=== PATIENT | female | born 1980 | race Caucasian/White ===

== ENCOUNTER → 2016-10-14 | Outpatient (CLI) | payer BC ==
--- NOTE | 2016-10-14 12:11 | US ---
October 14, [address] Giancarlo Zavala, Thank you for requesting consultation and a detailed obstetrical ultrasound for Mrs. Connie wells t o advanced maternal age. As you know, Inés is a 36 year old G 3, P 1011 . Her due date is 7 by ultrasound dating. Her current gestational age based on this dating is 21 weeks 0 days. Her [facility] screening revealed a reassuring NIPT (by her report, I don't have the records) and a normal MSA FP. Her obstetrical history reveals a miscarriage and a term vaginal delivery. ULTRASOUND Number of fetuses: 1 Placental location: Anterior; no evidence of previa Placental cord insertion: Intraplacental presentation: Cephalic Cervix: 4.4 cm viewed transabdominally Maximum Vertical Pocket: 6.5 cm The adnexa were evaluated. No pathology was seen. Right ovary is visualized and appears normal. It measures 3.1 x 1.9 x 3.2 cm. There is a probable cor pus luteum of this ovary. Left ovary is visualized with a small simple cyst. The ovary measures 4.4 x 2.8 x 4.2 cm. The cyst me asures 3.6 x 2.4 x 3.2 cm. MEASUREMENTS: Biparietal diameter: 53 mm 22 weeks, 1 days Head circumference: 191 mm 21 weeks, 3 days Abdominal circumference: 170 mm 22 weeks, 1 days Femur length: 34 mm 20 weeks, 4 days Humerus length: 35 mm 21 weeks, 6 days Transcerebellar diameter: 23 mm 21 weeks, 1 days Average ultrasound age: 21 weeks, 4 days Estimated weight: 427 gm weight percentile: 69% ANATOMY Supratentorial brain: Normal including views of the falx, cavum septum pellucidum and choroids Lateral Ventricle: Normal, measuring 4.3 mm Posterior fossa: Normal including the cerebellum and cisterna magna Spine: Normal Nuchal fold: 4.8 mm normal Face: Normal views of the lip and nose area Profile: Normal Palate: Normal appearance of the alveolar ridge Cardiac Exam: Four chamber view of the heart: Normal including intraventricular septum Left Ventricular Outflow Tract: Normal Right Ventricular Outflow Tract: Normal 3 Vessel View: Normal Tracheal View: Normal Aortic Arch: Normal Ductal Arch: Normal SVC/IVC: Normal Heart Rate: 136 bpm Diaphragm: No overt abnormalities have been detected Stomach: Normal Umbilical cord insertion: Normal Right kidney: Normal Left kidney: Normal Bladder: Normal Number of cord vessels: Three Upper extremities: Normal including the number, and architecture Lower extremities: Normal including the number and architecture Gender: Undisclosed; "Normal" IMPRESSION: 1. Intrauterine at 21 w 0 d, EMANI of 02/24/17. This is consistent with her previously esta blished dates. 2. Today's sonogram reveals a normal appearing fetus. 3. Cervical length measures 4.4 cm, and is without evidence of insufficiency. 4. Advanced maternal age; reassuring NIPT RECOMMENDATIONS: I was pleased to review today's ultrasound with your patient. I have reassured her that the gr owth and amniotic fluid volume are appropriate for this gestational age. The detailed anatomic surve y did not reveal any overt abnormalities. Inés is aware that ultrasound is a screening tool and cannot provide definitive genetic diagnosis. Should she desire definitive genetic diagnosis, tomas blanchard would need to have a genetic amniocentesis performed. After our discussion regarding the procedure , benefits, risks, alternatives, and limitations to the information received Inés DECLINES amniocen tesis. Future ultrasound and consultation is left to your clinical discretion. Thank you for allowing me the opportunity to consult and evaluate your patient. Should you have any questions or concerns please do not hesitate to contact me. This visit was approximately 15 minutes in length with 10 minutes spent in direct face to face consultation reviewing aneuploidy screening ve rsus definitive genetic diagnosis. Sincerely, Apurva Hudson MD [facility] Department of Obstetrics & Gynecology [facility]
--- NOTE | 2016-10-14 16:32 | US ---
OB sonogram History: EMANI 02/24/2017, 21 weeks 0 days, check growth and anatomy, maternal history of miscarriage, a dvanced maternal age Comparison: None Findings: There is a single viable intrauterine gestation in vertex presentation. The placenta is ant erior without previa. The cervix is closed measuring 4.4 cm transabdominally. The umbilical cord inse rts normally into the placenta. Maximum amniotic fluid pocket = 6.5 cm. Both maternal ovaries are vis ualized and are normal. There is a cyst 3.6 cm simple cyst in the maternal left ovary. The visualized face, intracranial contents and spine look normal. The heart i s 4 chambered and has normal right and left ventricular outflow tracks and an intact interventricular septum. heart rate = 136 bpm. Fluid is identified in the stomach and urinary bladd er. The renal region looks normal. The umbilical cord has 3 vessels and a normal insertion site . 4 extremities are present. BPD = 53 mm = 22 weeks 1 day Head circumference = 191 mm = 21 weeks 3 days Abdominal circumference = 170 mm = 22 weeks 1 day Femur length = 34 mm = 20 weeks 4 days Humeral length = 35 mm = 21 weeks 6 days Cerebellar width = 23 mm = 21 weeks 1 day Cisterna magna = 4 mm Estimated weight = 4 21 g = 67 percentile Average gestational age by ultrasound = 21 weeks 4 days Ultrasound EMANI February 20, 2017 Impression: Size consistent with dates. Normal anatomy. This report should be read in conjuncti on with a consultation by Dr. Apurva Hudson.
== END ==
LOC: FIMAGING 10:37
PROVIDERS: ATTEND Obstetrics & Gynecology
DX: O09.522 Supervision of elderly multigravida, second trimester (principal); Z3A.21 21 weeks gestation of pregnancy

== ENCOUNTER → 2016-12-16 | Outpatient (CLI) | payer BC | LOC: FIMAGING 12:34 | PROVIDERS: ATTEND Obstetrics & Gynecology | DX: O14.93 Unspecified pre-eclampsia, third trimester (principal); O36.63X0 Maternal care for excessive fetal growth, third trimester, not applicable or unspecified; O09.523 Supervision of elderly multigravida, third trimester; Z3A.30 30 weeks gestation of pregnancy ==

== ENCOUNTER → 2017-01-06 | Outpatient (CLI) | payer BC | LOC: FIMAGING 12:52 | PROVIDERS: ATTEND Obstetrics & Gynecology | DX: O09.523 Supervision of elderly multigravida, third trimester (principal); O14.93 Unspecified pre-eclampsia, third trimester; Z3A.33 33 weeks gestation of pregnancy ==

== ENCOUNTER → 2017-01-27 | Outpatient (CLI) | payer BC | LOC: FIMAGING 08:16 | PROVIDERS: ATTEND Obstetrics & Gynecology | DX: O09.523 Supervision of elderly multigravida, third trimester (principal); O14.93 Unspecified pre-eclampsia, third trimester; Z3A.36 36 weeks gestation of pregnancy ==

== ENCOUNTER 2017-02-04 07:30 | Inpatient (IN) | payer BC ==
[2017-02-04] MEDS ORDERED: OLIVE OIL 118 ML BTL MISC PRN (11:46)
[2017-02-04] MEDS ORDERED: EPSOM SALT 454 GM TP PRN (11:46)
[2017-02-04] MEDS ORDERED: TERBUTALINE SULFATE 1 MG/ML VIAL IV PRN (11:46)
[2017-02-04] MEDS ORDERED: LR 1,000 ML IV PRN (11:46)
[2017-02-04] MEDS ORDERED: OXYTOCIN/RINGERS LACTATE 1,000 ML IV PRN (11:46)
[2017-02-04] MEDS ORDERED: OXYTOCIN/LR *STANDARD DOSE PROTOCOL IV SCH (12:30)
[2017-02-04] MEDS ORDERED: LIDOCAINE 1% 2 ML INJ ONE (12:36)
[2017-02-04] MEDS ORDERED: LIDOCAINE 1% 300 MG/30 ML SDV ONE (12:38)
[2017-02-04] MEDS ORDERED: AMMONIA AROMATIC 1 EACH AMP IH ONE (12:39)
[2017-02-04] MEDS ORDERED: TERBUTALINE SULFATE 1 MG/ML VIAL ONE (12:39)
[2017-02-04] MEDS ORDERED: OLIVE OIL 118 ML BTL ONE (12:39)
[2017-02-04] MEDS ORDERED: OXYTOCIN 10 UNIT/ML VIAL ONE (12:40)
[2017-02-04] MEDS ORDERED: MISOPROSTOL 200 MCG TAB ONE (12:40)
--- NOTE | 2017-02-04 14:29 | OBPROG ---
OBG Progress Note Assessment/Plan: Assessment: 36 yo @ 37 09/14, IOL for mild pre-eclampsia Plan: 02/04/17 14:27 FWB reassuring. GBS neg. Arom clear. Will begin pitocin. Subjective: 36 yo @ 37 09/14, IOL for mild kud-vxdaoqrta-ab headaches, no chest pain, no vision changes. Objective: VSS - SVE Dilation (cm): 2 Effacement (%): Less than 50 Station: -2 Current Contraction Pattern: Irregular FHR (bpm): 150 FHR Pattern Variability: Moderate FHR Category: 2 Membranes: AROM Amniotic Fluid Color: Clear ICD10 Worksheet Patient Problems: Problems Problem Status Onset Mild pre-eclampsia Acute
[2017-02-04 14:32] LABS: ABSOLUTE IMMATURE GRANULOCYTES 0.12 10^3/uL (0.00-0.10); ADD DIFF? NO; ADD MORPH? NO; ADD SCAN? NO; ATYPICAL LYMPHOCYTE FLAG 0 (0-99); FRAGMENT RBC FLAG 10 (0-99); HEMATOCRIT 41.8 % (38.0-47.0); HEMOGLOBIN 13.9 g/dL (12.6-16.3); LEFT SHIFT FLG 10 (0-99); LIPEMIA HEMOLYSIS FLAG 80 (0-99); MEAN CELL HEMOGLOBIN 28.9 pg (27.9-34.1); MEAN CELL HEMOGLOBIN CONCENTR. 33.3 g/dL (32.4-36.7); MEAN CELL VOLUME 86.9 fL (81.5-99.8); MEAN PLATELET VOLUME 13.2 fL (8.7-11.7); PLATELET CLUMPS FLAG 10 (0-99); PLATELET COUNT 150 10^3/uL (150-400); RED BLOOD CELL COUNT 4.81 10^6/uL (4.18-5.33); RED CELL DISTRIBUTION WIDTH 14.4 % (11.5-15.2)
[2017-02-04 14:45] LABS: ALANINE AMINOTRANSFERASE 22 IU/L (9-52); ASPARTATE AMINOTRANSFERASE 25 IU/L (14-46); BILIRUBIN,TOTAL 0.6 mg/dL (0.1-1.4); BILIRUBIN-CONJUGATED 0.4 mg/dL (0.0-0.5); BILIRUBIN-UNCONJUGATED 0.2 mg/dL (0.0-1.1); CREATININE 0.6 mg/dL (0.6-1.0); GLOMERULAR FILTRATION RATE > 60; LACTATE DEHYDROGENASE 481 IU/L (313-618); URIC ACID 6.3 mg/dL (2.5-6.8)
--- NOTE | 2017-02-04 18:48 | OBPROG ---
OBG Progress Note Assessment/Plan: Assessment: 36 yo @ 37 09/14, IOL for mild pre-eclampsia Plan: FWB reassuring. GBS neg. Arom clear. expect soon. Subjective: 36 yo @ 37 09/14, IOL for mild nwo-wjumymhey-ayleq pelvic pressure. Having blood show. Objective: 02/04/17 13:55 02/04/17 13:55 Patient ABO/Rh O POSITIVE 02/04/17 13:55 Uric Acid 6.3 mg/dL (2.5-6.8) 02/04/17 13:55 Total Bilirubin 0.6 mg/dL (0.1-1.4) 02/04/17 13:55 Conjugated Bilirubin 0.4 mg/dL (0.0-0.5) 02/04/17 13:55 Unconjugated Bilirubin 0.2 mg/dL (0.0-1.1) 02/04/17 13:55 AST 25 IU/L (14-46) 02/04/17 13:55 ALT 22 IU/L (9-52) 02/04/17 13:55 Lactate Dehydrogenase 481 IU/L (313-618) 02/04/17 13:55 VSS - SVE Dilation (cm): 5 Effacement (%): 100 Station: -1 Current Contraction Pattern: Regular FHR (bpm): 130 FHR Pattern Variability: Moderate FHR Category: 2 Membranes: AROM Amniotic Fluid Color: Clear ICD10 Worksheet Patient Problems: Problems Problem Status Onset Mild pre-eclampsia Acute
[2017-02-04] MEDS ORDERED: HYDROCORTISONE 0.5% CREAM TP PRN (20:14)
[2017-02-04] MEDS ORDERED: HYDROCODONE/APAP 5/325 TAB PO PRN (20:14)
[2017-02-04] MEDS ORDERED: SIMETHICONE 80 MG TAB CHEW PO PRN (20:14)
--- NOTE | 2017-02-04 20:16 | OBPROC ---
- Labor and Delivery Onset of Contractions Date: 02/04/17 Onset of Contractions Time: 14:00 Onset of Contractions Type: Induced Rupture of Membranes Date: 02/04/17 Rupture of Membranes Time: 14:00 Rupture of Membranes Type: Artificial Amniotic Fluid Color: Clear Dilation Complete Time: 19:00 Delivery Type: Spontaneous Placenta Delivery Date: 02/04/17 Episiotomy/Laceration: 1st Degree Repair: 3-0, Vicryl EBL: 200 ml Complications: None - Medications Labor Augmentation/Induction Meds Used: Pitocin Labor Augmentation/Induction Indication: Medical (mild pre-eclampsia) - Info Infant A Delivery Date: 02/04/17 Delivery Time: 19:08 Sex of : Male Score (1 Min): 8 Score (5 Min): 9
[2017-02-05] MEDS: IBUPROFEN 600 MG TAB PO PRN ×2 (05:25→19:54)
--- NOTE | 2017-02-05 08:45 | SOAPPROG ---
SOAP Progress Note Assessment/Plan: Assessment: 36 yo PPD#1 s/p IOL for preeclampsia without severe features No symptoms, labs WNL Recovering well Rh pos, rub imm Plan: Monitor BPs this AM Consider home tonight at her request if peds agrees Otherwise routine pp care 02/05/17 08:44 Subjective: Mom feels well, no concerns. Bleeding appropriate. BF going well. Denies PIH symptoms. Would like to go home today if possible. Objective: Vital Signs Temp Pulse Resp BP Pulse Ox 36.6 C 86 18 130/81 H 98 02/04/17 23:20 02/04/17 23:20 02/04/17 23:20 02/04/17 23:20 02/04/17 23:20 Laboratory Results 02/04/17 13:55 02/04/17 13:55 02/04/17 02/05/17 02/06/17 05:59 05:59 05:59 Output Total 200 Balance -200 Gen: NAD Resp: unlabored CV: RRR Abd: soft, nontender, uterus firm below U Ext: trace edema ICD10 Worksheet Patient Problems: Problems Problem Status Onset Mild pre-eclampsia Acute
[2017-02-05] MEDS ORDERED: SUCROSE 1 EA UDL ONE (20:09)
[2017-02-05 20:54] VITALS: O2SAT 97
[2017-02-05] MEDS: DOCUSATE SODIUM 100 MG CAP PO PRN (20:59)
[2017-02-06] MEDS: IBUPROFEN 600 MG TAB PO PRN ×2 (02:04→08:00)
[2017-02-06] MEDS: DOCUSATE SODIUM 100 MG CAP PO PRN (08:00)
--- NOTE | 2017-02-06 08:40 | OBGCSDC ---
General Delivery Information - General Info : 3 Para: 2 Delivery Physician/CNM: Rachel Sahu Admission Date: 02/04/17 Labs: Patient ABO/Rh O POSITIVE 02/04/17 13:55 Hct 41.8 % (38.0-47.0) 02/04/17 13:55 Vaginal - Diagnosis Labor: Induced Rupture of Membranes Type: Artificial Amniotic Fluid Color: Clear Laceration: 1st Degree Repair: 3-0, Vicryl Delivery Events: None - Operations/Procedures L&D Analgesia/Anesthesia Type: None, Local - Delivery L&D Analgesia/Anesthesia Type: Local Lloyd Data Echeverria Delivery Date: 02/04/17 EMANI: 02/24/17 Gestational Age: 37 week(s) and 3 day(s) Sex of : Male Lloyd Weight (gm): 3232 kg Score (1 Min): 8 Score (5 Min): 9 Discharge Information - Discharge Information Discharge Medications: Ibuprofen, Oxycodone, Vitamins Condition: Good Instruction/Follow Up: Two Weeks, Six Weeks Discharge Physician/CNM: Caitlyn Blake
[2017-02-06] MEDS ORDERED: PROCTOFOAM HC 10 GM CAN PR SCH (09:00)
[2017-02-06 13:35] VITALS: BP 125/85; PULSE 84; RESP 16; TEMP 97.7
== END 2017-02-06 13:15 | disposition home or self-care (01) | DRG 775 ==
LOC: FLD 09:47 → FOB 23:08
PROVIDERS: ADMIT Obstetrics & Gynecology; ATTEND Obstetrics & Gynecology
PROC: 0HQ9XZZ Repair Perineum Skin, External Approach (ICD-10-PCS; principal; 2017-02-04)
PROC: 10E0XZZ Delivery of Products of Conception, External Approach (ICD-10-PCS; principal; 2017-02-04)
PROC: 10907ZC Drainage of Amniotic Fluid, Therapeutic from Products of Conception, Via Natural or Artificial Opening (ICD-10-PCS; principal; 2017-02-04)
PROC: 3E033VJ Introduction of Other Hormone into Peripheral Vein, Percutaneous Approach (ICD-10-PCS; principal; 2017-02-04)
DX: O14.04 Mild to moderate pre-eclampsia, complicating childbirth (principal); O70.0 First degree perineal laceration during delivery; O22.43 Hemorrhoids in pregnancy, third trimester; Z3A.37 37 weeks gestation of pregnancy; Z37.0 Single live birth
CPT/HCPCS: J2590; J3105